=== PATIENT | female | born 1950 | race Hispanic/Latino ===

== ENCOUNTER 2020-07-01 05:45 | Day surgery (SDC) | payer MEDICARE ==
[2020-06-29 10:45] LABS: BASOPHILS % (AUTO) 0.3 % (0.0-5.0); EOSINOPHILS % (AUTO) 2.1 % (0.0-8.0); HEMATOCRIT 42.7 % (36-48); MEAN CORPUSCULAR HEMOGLOBIN 27.8 pg (27.0-33.0); MEAN CORPUSCULAR HGB CONC 31.1 g/dL (32.0-36.0); MEAN CORPUSCULAR VOLUME 89.3 fL (79-99); MONOCYTES % (AUTO) 8.4 % (3.0-13.0); NEUTROPHILS % (AUTO) 64.9 % (40.0-77.0); PLATELET COUNT (AUTO) 270 K/uL (130-400); RED BLOOD CELL COUNT(AUTO) 4.78 MIL/uL (4.00-5.50); RED CELL DISTRIBUTION WIDTH 14.1 % (11.0-15.5); WHITE BLOOD COUNT (AUTO) 9.6 K/uL (4.8-10.8)
[2020-06-29 10:59] LABS: INR 0.96 (0.85-1.15); PROTHROMBIN TIME 10.4 SEC (9.6-11.6)
[2020-06-29 11:02] LABS: CREATININE 0.8 mg/dL (0.5-1.5); POTASSIUM 4.9 mmol/L (3.5-5.1)
[2020-06-30 11:38] VITALS: BP 158/78
[~2020-07-01] VITALS: Ht 152.4 cm; Wt 123.7 kg
[2020-07-01] VITALS (7 sets, daily range): BP systolic 133–168; BP diastolic 52–78
[~2020-07-01 05:45] MED LIST: ASPI-1197 PO; CARV25TA PO; CEFAZOLIN SODIUM 1 GM VIAL IVP SCH; CHOL2400 MC; FURO40TA5 PO; INSU3INS5 SQ; LORA10TA7 PO; LOSA100T58 PO; METF-444 PO; PRAV40TA3 PO; ROPI1TAB13 PO
--- NOTE | 2020-07-01 06:00 | NUR ---
DAY PT ARRIVAL PT NTED IN BED IN NO APPARENT DISTRESS, DAUGHTER AT BEDSIDE. PREP FOR BOX NAILER PROCEDURE STARTEDAT THIS TIME. QUESTIONS ANSWERED.
[2020-07-01] MEDS ORDERED: BUPIVACAINE/PF 0.25% 30ML VIAL IJ ONE (07:28)
[2020-07-01] MEDS ORDERED: CEFAZOLIN SODIUM 1 GM VIAL ONE (07:28)
[2020-07-01] MEDS ORDERED: MIDAZOLAM HCL 1 MG/ML 2ML VIAL ONE ×2 (07:29→08:05)
[2020-07-01] MEDS ORDERED: MEPERIDINE-PF 25 MG/ML SYG ONE ×2 (07:29→08:06)
[2020-07-01] MEDS ORDERED: LIDOCAINE HCL 1% MDV 50ML VIAL ONE (07:29)
[2020-07-01] MEDS ORDERED: ACETAMINOPHEN-CODEINE 300/30MG TAB PO PRN (09:45)
[2020-07-01] MEDS ORDERED: TRAM50TA4 PO (09:46)
--- NOTE | 2020-07-01 10:00 | NUR ---
FLOAT REMOVER RETURN pT RETURNED FROM FLOAT REMOVER IN NO DISTRESS. SITE CHECK TO LEFT UPPER CHEST. SOFT TO TOUCH. SCANT AMOUNT OF BLOOD.
--- NOTE | 2020-07-01 10:30 | NUR ---
SITE CHECK TO LEFT UPPER CHEST. SOFT TO TOUCH. SCANT AMOUNT OF BLOOD WITH SMALL INCREASE IN BLOOD AREA.
--- NOTE | 2020-07-01 10:45 | NUR ---
PM SITE CHECK SITE CHECK TO LEFT UPPER CHEST. SOFT TO TOUCH. SCANT AMOUNT OF BLOOD NOTED PER PREVIOUS CHECK
--- NOTE | 2020-07-01 11:15 | NUR ---
SITE CHECK SITE CHECK TO LEFT UPPER CHEST. SOFT TO TOUCH. SCANT AMOUNT OF BLOOD PER PREVIOUS CHECK.
--- NOTE | 2020-07-01 11:45 | NUR ---
site check SITE CHECK TO LEFT UPPER CHEST. SOFT TO TOUCH. SCANT AMOUNT OF BLOOD to dressing per previous check
--- NOTE | 2020-07-01 12:45 | NUR ---
Site Check and Day Pt DC SITE CHECK TO LEFT UPPER CHEST. SOFT TO TOUCH. SCANT AMOUNT OF BLOOD. Pt and daughter given instructions to change dressing for 5 days and to continue monitoring for inflamation and swelling to site. Taken to front in wheelchair
== END 2020-07-01 13:00 | disposition home or self-care (01) ==
LOC: DAH 05:45
PROVIDERS: ATTEND Internal Medicine Cardiovascular Disease
DX: I42.0 Dilated cardiomyopathy (principal); I50.22 Chronic systolic (congestive) heart failure; I44.7 Left bundle-branch block, unspecified; G47.33 Obstructive sleep apnea (adult) (pediatric); Z95.810 Presence of automatic (implantable) cardiac defibrillator; Z99.89 Dependence on other enabling machines and devices; Z79.01 Long term (current) use of anticoagulants; Z79.899 Other long term (current) drug therapy
CPT/HCPCS: 33264; 36415; 80048; 82948; 85025; 85610; 85730; 93005; A4215; A4216; A4221; A4222; A4223 ×3; A4606; A4663; A6402; C1882; J0690; J2175 ×2; J2250 ×2; J3490 ×2; 99156; 99157